=== PATIENT | female | born 1940 | race Two or more races ===

== ENCOUNTER 2016-12-05 23:51 | Emergency (ER) | payer MEDICARE ==
[~2016-12-05] VITALS: Ht 165.1 cm; Wt 54.0 kg
[2016-12-06 00:08] VITALS: BP 140/58
[2016-12-06] MEDS ORDERED: ACETAMINOPHEN 325MG TABLET PO ONE (00:45)
== END 2016-12-06 03:49 | disposition home or self-care (01) ==
LOC: ER 23:51
DX: S09.90XA Unspecified injury of head, initial encounter (principal); I10 Essential (primary) hypertension; M19.90 Unspecified osteoarthritis, unspecified site; J45.909 Unspecified asthma, uncomplicated; W18.09XA Striking against other object with subsequent fall, initial encounter; Y93.89 Activity, other specified; Y92.520 Airport as the place of occurrence of the external cause
CPT/HCPCS: 70450; 99284